=== PATIENT | male | born 1985 | race Caucasian/White ===

== ENCOUNTER 2017-06-01 05:29 | Inpatient (IN) | payer MEDICARE, OTHER ==
--- NOTE | 2017-05-21 11:16 | RADIOLOGY REPORT (SQ) ---
EXAM DESCRIPTION: CHEST PA/LATERAL COMPLETED DATE/TIME: 05/21/2017 10:59 am REASON FOR STUDY: PRE OP COMPARISON: None. EXAM PARAMETERS: NUMBER OF VIEWS: two views TECHNIQUE: Digital Frontal and Lateral radiographic views of the chest acquired. RADIATION DOSE: NA LIMITATIONS: none FINDINGS: LUNGS AND PLEURA: No opacities, masses or pneumothorax. No pleural effusion. MEDIASTINUM AND HILAR STRUCTURES: No masses or contour abnormalities. HEART AND VASCULAR STRUCTURES: Heart normal size. No evidence for failure. BONES: Sclerosis mid 3rd left clavicle, question old fracture HARDWARE: Right-sided permanent central line tip superior vena cava up neurostimulator electrodes ove r the mid thoracic spine. OTHER: No other significant finding. IMPRESSION: No acute changes TECHNICAL DOCUMENTATION: JOB ID: [id number] [employer]- All Rights Reserved
[~2017-06-01 05:29] MED LIST: BUPIVACAINE INJ/PF LIPOSOME/PF 266 MG/20 ML SDV INJ PRN; CEFAZOLIN INJ 1 GM VIAL IV PRN; IBUPROFEN 800 MG in NORMAL SALINE 250 ML IV PRN; LACTATED RINGERS 1000 ML IV PRN; LANSOPRAZOLE 15 MG TAB.RAP.DR PO PRN; LIDOCAINE 0.5% INJ-PF (5 MG/ML) 50 ML SDV SUBCUT PRN; ONDANSETRON HCL INJ/PF 4 MG/2 ML SDV IV PRN; OXYCODONE HCL SR 10 MG TABLET PO PRN; TRANEXAMIC ACID INJ/PF 1,000 MG/10 ML SDV IV PRN; VANCOMYCIN HCL 1,000 MG in DEXTROSE 5%-WATER 250 ML IV PRN
[2017-06-01] MEDS ORDERED: BUPIVACAINE INJ/PF LIPOSOME/PF 266 MG/20 ML SDV ONE (06:32)
[2017-06-01] MEDS ORDERED: MIDAZOLAM 2 MG/2 ML INJ ONE (07:02)
[2017-06-01] MEDS ORDERED: FENTANYL CITRATE INJ/PF 100 MCG/2 ML AMPUL ONE (07:02)
[2017-06-01] MEDS ORDERED: PROPOFOL INJ 200 MG/20 ML VIAL IV ONE (07:03)
[2017-06-01] MEDS ORDERED: HYDROMORPHONE HCL INJ/PF 2 MG/ML AMPULE ONE (07:03)
[2017-06-01] MEDS ORDERED: ACETAMINOPHEN 100 ML IV ONE (07:03)
[2017-06-01] MEDS ORDERED: DEXMEDETOMIDINE INJ 80 MCG/20 ML VIAL IV ONE (07:03)
[2017-06-01] MEDS ORDERED: EPHEDRINE SULFATE INJ 50 MG/1 ML AMPULE ONE (07:18)
[2017-06-01] MEDS ORDERED: TRANEXAMIC ACID INJ/PF 1,000 MG/10 ML SDV IV ONE ×3 (07:26→11:00)
[2017-06-01] MEDS ORDERED: DIPHENHYDRAMINE HCL 50 MG/ML VIAL IV PRN (08:37)
[2017-06-01] MEDS ORDERED: FENTANYL CITRATE INJ/PF 100 MCG/2 ML AMPUL IV PRN ×3 (08:37)
[2017-06-01] MEDS ORDERED: ONDANSETRON HCL INJ/PF 4 MG/2 ML SDV IV PRN (08:37)
[2017-06-01] MEDS ORDERED: MORPHINE SULFATE 10 MG/ML INJ IV PRN ×2 (08:37→09:43)
[2017-06-01] MEDS ORDERED: MEPERIDINE HCL/PF INJ 25 MG/1 ML DISP.SYRIN IV PRN (08:37)
[2017-06-01] MEDS ORDERED: PROMETHAZINE HCL INJ 25 MG/1 ML VIAL IV PRN ×2 (08:37)
--- NOTE | 2017-06-01 09:38 | Operative Report ---
Operative Report DATE OF SURGERY: 06/01/17 PREOPERATIVE DIAGNOSIS: Right proximal humeral avascular necrosis OPERATION: Right shoulder arthroplasty SURGEON: RALPH SCHERER 1ST JUNIOR SYSTEMS ANALYST: PRABHU CHEN ANESTHESIA: GA TISSUE REMOVED OR ALTERED: Bone to pathology ESTIMATED BLOOD LOSS: 150 PROCEDURE: Implants used: Izabela total shoulder arthroplasty, size 11 humerus, size 48 glenoid, size 48 humeral head Procedure with the patient in a beachchair position the operative table the right upper extremity and forequarter prepped and draped in sterile fashion. A standard deltopectoral approach the humerus is taken. Approximate 1 cm of pectoralis insertion was released. Subsequently the biceps groove was opened using a scissor and tendon transected proximally. The lesser tuberosity was osteotomized with a osteotome and marked with a tagging suture. The humeral head is then delivered into the field. Access is gained to the proximal humerus using an appropriate awl and then the humerus was prepared using cylindrical reamers until 11 reamer seated. Subsequently broaches were then used into the 11 broach is seated. A metal cap was placed on numerous attention is now turned to the glenoid. Glenoid is cleared of the labrum and the capsule was released released circumferentially. A central hole was then drilled followed by series of 2 inferior 1 proximal holes for the pegs. These are irrigated. A size 48 glenoid was then cemented in place using polymethylmethacrylate. Attention was now returned to the humerus. A trial reduction performed with 48 mm head. This provides adequate anterior posterior stability. The existing broach is removed. The size 11 stem was impacted down to the humeral canal. A size 48 head is impacted onto the humerus. The shoulder is reduced. The lesser tuberosity osteotomy was repaired using FiberWire as is the remainder of the rotator cuff interval. The remainder the soft tissues closed using Vicryl followed by valeria. A sterile compressive dressing and a shoulder immobilizer applied and the patient's return to the recovery room in satisfactory condition.
[2017-06-01] MEDS ORDERED: ASPIRIN 81 MG TABLET, ENT COATED PO SCH (10:00)
[2017-06-01] MEDS: MEPERIDINE HCL/PF INJ 25 MG/1 ML DISP.SYRIN ONE ×2 (10:00→10:05)
[2017-06-01] MEDS: FENTANYL CITRATE INJ/PF 100 MCG/2 ML AMPUL ONE ×2 (10:10→10:15)
--- NOTE | 2017-06-01 11:44 | RADIOLOGY REPORT (SQ) ---
EXAM DESCRIPTION: SHOULDER RIGHT 2 OR MORE VIEWS COMPLETED DATE/TIME: 06/01/2017 10:36 am REASON FOR STUDY: rt. shoulder arthroplasy M87.121 OSTEONECROSIS DUE TO DRUGS, RIGHT HUMERUS COMPARISON: None. NUMBER OF VIEWS: 2 TECHNIQUE: Internal rotation, external rotation, images acquired of the right shoulder. LIMITATIONS: None. FINDINGS: Expected postsurgical changes from right shoulder arthroplasty. Hardware is in expected p osition. OTHER: Right chest port noted. IMPRESSION: Expected postsurgical changes from right shoulder arthroplasty. Hardware is in expected position. TECHNICAL DOCUMENTATION: JOB ID: [id number] [place]-72 2010 [employer]- All Rights Reserved
[2017-06-01] MEDS ORDERED: OXYCODONE HCL SR 10 MG TABLET PO SCH (12:00)
[2017-06-01] MEDS ORDERED: ONDANSETRON HCL INJ/PF 4 MG/2 ML SDV ONE (12:50)
[2017-06-01] MEDS ORDERED: METOCLOPRAMIDE HCL INJ/PF 10 MG/2 ML SDV ONE (12:50)
[2017-06-01] MEDS ORDERED: GLYCOPYRROLATE INJ 0.4 MG/2 ML VIAL ONE (12:50)
[2017-06-01] MEDS ORDERED: SUCCINYLCHOLINE CHLORIDE INJ 200 MG/10 ML VIAL ONE (12:50)
[2017-06-01] MEDS ORDERED: DEXAMETHASONE SOD PHOSPHATE INJ 4 MG/1 ML VIAL ONE (12:50)
[2017-06-01] MEDS ORDERED: LIDOCAINE 2% INJ-PF (20 MG/ML) 2 ML AMPUL ONE (12:50)
[2017-06-01] MEDS: OXYCODONE HCL SR 40 MG TABLET PO SCH ×2 (15:59→21:22)
[2017-06-01] MEDS: GABAPENTIN 300 MG CAPSULE PO SCH ×2 (15:59→21:22)
[2017-06-01] MEDS: OXYCODONE HCL IR 5 MG TABLET PO SCH ×2 (18:23→23:46)
[2017-06-01] MEDS ORDERED: VANCOMYCIN HCL 1,000 MG in DEXTROSE 5%-WATER 250 ML IV ONE (20:00)
[2017-06-01] MEDS ORDERED: ZOLPIDEM TARTRATE 5 MG TABLET PO PRN (22:00)
[2017-06-02] MEDS: OXYCODONE HCL SR 40 MG TABLET PO SCH (05:14)
[2017-06-02] MEDS: OXYCODONE HCL IR 5 MG TABLET PO SCH (05:15)
[2017-06-02] MEDS: GABAPENTIN 300 MG CAPSULE PO SCH (05:15)
--- NOTE | 2017-06-02 06:44 | PDOC DISCHARGE SUMMARY ---
General - Admit/Disc Date/PCP Admission Date/Primary Care Provider: 06/01/17 05:29 GABBIE ADAIR NP Discharge Date: 06/02/17 - Discharge Diagnosis (1) Avascular necrosis of right humeral head Is this a current diagnosis for this admission?: Yes - Additional Information Resuscitation Status: Full Code Discharge Diet: As Tolerated, Regular Discharge Activity: Activity As Tolerated, No Lifting Over 10 Pounds Home Medications: Doxepin HCl [Silenor] 3 mg PO DAILY 06/01/17 Eszopiclone [Lunesta] 6 mg PO QHS 06/01/17 Gabapentin [Neurontin] 600 mg PO Q8 06/01/17 Oxycodone HCl 15 mg PO Q6HP PRN 06/01/17 Oxycodone HCl [Oxycontin] 40 mg PO Q8 06/01/17 History of Present Illness History of Present Illness: GREGORIA HERNANDEZ is a 31 year old male with avascular necrosis of the right humeral head admitted for total right shoulder arthroplasty. Hospital Course Hospital Course: 31-year-old white male who was admitted to the OR and underwent an elective total right shoulder arthroplasty. He was returned to the PACU in satisfactory condition and taken to the surgical floor. He was seen by Occupational Therapy and nursing staff for pain management. He has made progress with pain management stating that his pain is well controlled and he is much more comfortable than previously. He will be discharged home today with home health nursing, home occupational therapy and prescriptions for analgesic medication distributed by Dr. Love. Physical Exam Vital Signs: Temp Pulse Resp BP Pulse Ox 36.9 C 79 16 114/55 L 97 06/01/17 23:17 06/01/17 23:17 06/01/17 23:17 06/01/17 23:17 06/01/17 23:17 Intake & Output 05/31/17 06/01/17 06/02/17 06:59 06:59 06:59 Intake Total 0 4100 Output Total 1050 Balance 0 3050 Weight 66.4 kg General appearance: PRESENT: no acute distress, well-developed, well-nourished Head exam: PRESENT: atraumatic, normocephalic Respiratory exam: PRESENT: unlabored Pulses: PRESENT: normal radial pulses, normal dorsalis pedis pul, +2 pedal pulses bilateral Vascular exam: PRESENT: normal capillary refill Extremities exam: PRESENT: joint swelling Additional comments: Patient lying recumbent in hospital bed this morning with bilateral upper extremities in full extension. He has brisk capillary refill to fingers on bilateral upper extremities and +2 radial pulses. He notes his pain is much better controlled particularly with ice pack applied to surgical site. His postop site dressing is clean dry and intact. He is appropriate strength range of motion for this stage in the healing process. His sensorimotor functions are intact and his distal neurovascular exam is intact. Musculoskeletal exam: PRESENT: ambulatory Additional comments: Patient's postoperative pain is well controlled by nursing staff and Dr. Love he notes that his pain is much better particularly when ice pack is applied to surgical site. He is still slightly tender to palpation. He is able to ambulate and complete ADLs. Based on this surgical procedure patient would likely benefit from physical therapy/Occupational Therapy and his postoperative course. Neurological exam: PRESENT: alert, awake, oriented to person, oriented to place , oriented to time, oriented to situation, CN II-XII grossly intact. ABSENT: motor sensory deficit Psychiatric exam: PRESENT: appropriate affect, normal mood. ABSENT: homicidal ideation, suicidal ideation Skin exam: PRESENT: dry, intact, warm. ABSENT: cyanosis, rash Results Laboratory Results: 06/01/17 05:47 Blood Type O POSITIVE Antibody Screen NEGATIVE Impressions: Chest X-Ray 05/21/17 10:51 IMPRESSION: No acute changes Shoulder X-Ray 06/01/17 00:00 IMPRESSION: Expected postsurgical changes from right shoulder arthroplasty. Hardware is in expected position. Plan Discharge Plan: 31-year-old white male 1 day status post total right shoulder arthroplasty. He will be discharged to his home today with home health nursing, home occupational therapy. The visiting nurse service will change his OpSite dressing when they see fit i.e. when it is saturated with souleymane blood. He will follow-up with Dr. Love and Marcos COLLAZO at [facility] surgery 2 weeks postoperatively for staple removal and reevaluation. Time Spent: Less than 30 Minutes
[2017-06-02 08:13] VITALS: BP 118/75
== END 2017-06-02 09:37 | disposition home health service (06) | DRG 483 ==
LOC: INOR 05:29 → 4S 11:35
PROVIDERS: ADMIT Orthopaedic Surgery; ATTEND Orthopaedic Surgery
PROC: 0RRJ0JZ Replacement of Right Shoulder Joint with Synthetic Substitute, Open Approach (ICD-10-PCS; principal; 2017-06-01 07:30)
DX: M87.121 Osteonecrosis due to drugs, right humerus (principal); K50.90 Crohn's disease, unspecified, without complications; T38.0X5A Adverse effect of glucocorticoids and synthetic analogues, initial encounter; D50.9 Iron deficiency anemia, unspecified; Z96.643 Presence of artificial hip joint, bilateral; Z90.49 Acquired absence of other specified parts of digestive tract
CPT/HCPCS: 01630; 36415; 71020; 86850; 86900; 86901; 88305; 88311; C9290; G8987-GO; G8988-GO; G8989-GO; J0131; J0330; J0690; J1100; J1170; J1741; J2175; J2250; J2270; J2405; J2704; J2765; J3010; J3370; J3490; J7050; J7060; L3650

== ENCOUNTER 2017-06-12 15:21 | Emergency (ER) | payer MEDICARE, OTHER ==
--- NOTE | 2017-06-12 16:15 | ER Document Report ---
ED Medical Screen (RME) - General Mode of Arrival: Ambulatory Information source: Patient TRAVEL OUTSIDE OF THE [place] IN LAST 30 DAYS: No - General Chief Complaint: Arm Problem Stated Complaint: RIGHT ARM PAIN Time Seen by Provider: 06/12/17 15:45 Notes: Patient is a 31 year old male presenting to the emergency department complaining of right arm pain. Patient states that he has previously had right shoulder replacement shoulder on 06/01 and the pain has been increasing over the last 5 days. Patient denies any trauma to the shoulder but admits someone [place] the [place] recently. I have greeted and performed a rapid initial assessment of this patient. A comprehensive ED assessment and evaluation of the patient, analysis of test results and completion of the medical decision making process will be conducted by additional ED providers. (THI YORK) Patient is specifically concerned with possibility of a DVT in the right upper extremity. No history of DVT, does have a history of superficial thrombophlebitis postoperatively in the past. (KATY MADRIGAL) - Related Data Allergies/Adverse Reactions: No Known Allergies Allergy (Verified 06/12/17 15:21) Past Medical History - Social History Chew tobacco use (# tins/day): No Frequency of alcohol use: Occasional Drug Abuse: None - Past Medical History Cardiac Medical History: Denies: Hx Atrial Fibrillation, Hx Hypertension, Hx Pulmonary Embolism Pulmonary Medical History: Reports: Hx Bronchitis - chronic, Hx Pneumonia Denies: Hx Asthma, Hx COPD, Hx Respiratory Failure, Hx Sleep Apnea, Hx Tuberculosis Renal/ Medical History: Denies: Hx Peritoneal Dialysis Malignancy Medical History: Denies Hx Leukemia, Denies Hx Lung Cancer GI Medical History: Reports: Hx Crohn's Disease. Denies: Hx Gastroesophageal Reflux Disease, Hx Hiatal Hernia, Hx Irritable Bowel, Hx Liver Failure, Hx Pancreatitis, Hx Ulcer Musculoskeltal Medical History: Reports Hx Arthritis, Denies Hx Fibromyalgia, Denies Hx Muscular Dystrophy Psychiatric Medical History: Reports: Hx Depression Denies: Hx Bipolar Disorder, Hx Post Traumatic Stress Disorder, Hx Schizophrenia Traumatic Medical History: Denies: Hx Fractures Infectious Medical History: Denies: Hx HIV Past Surgical History: Reports: Hx Bowel Surgery - colectomy with ileostomy and reversal of ileostomy, Hx Colostomy - ileostomy and was reversed. Denies: Hx Appendectomy, Hx Cholecystectomy, Hx Coronary Artery Bypass Graft, Hx Gastric Bypass Surgery, Hx Herniorrhaphy, Hx Pacemaker, Hx Tonsillectomy - Immunizations History of Influenza Vaccine for 03/2017 - 08/2017 Season: No Physical Exam - Vital signs Vitals: Temp Pulse Resp BP Pulse Ox 98.2 F 86 16 113/66 97 06/12/17 15:37 06/12/17 15:37 06/12/17 15:37 06/12/17 15:37 06/12/17 15:37 - Notes Notes: GENERAL: Alert, interacts well. No acute distress. LUNGS: Clear to auscultation bilaterally, no wheezes, rales, or rhonchi. No respiratory distress. HEART: Regular rate and rhythm. No murmurs, gallops, or rubs. ABDOMEN: Soft, non-tender. Non-distended. Bowel sounds present in all 4 quadrants. EXTREMITIES: Incision at right glenohumeral joint, no exudate, no flucutance, swelling is consistent with post-operative changes. Pulses intact bilaterally, no change in skin color. Capillary refill is < 4seconds on thumbs bilaterally and < 2 seconds on palms bilaterally. No edema, radial and ulnar pulses 2/4 bilaterally. No cyanosis. (THI YORK) - Vital Signs Vital signs: Temp Pulse Resp BP Pulse Ox 98.2 F 86 16 113/66 97 06/12/17 15:37 06/12/17 15:37 06/12/17 15:37 06/12/17 15:37 06/12/17 15:37 Scribe Documentation - Scribe Written by Scribe:: Radha Andrade, 06/12/2017 16:15 acting as scribe for :: [employer]
--- NOTE | 2017-06-12 17:15 | RADIOLOGY REPORT (SQ) ---
EXAM DESCRIPTION: SHOULDER RIGHT 2 OR MORE VIEWS COMPLETED DATE/TIME: 06/12/2017 5:06 pm REASON FOR STUDY: RUE pain and swelling post-operatively COMPARISON: None. NUMBER OF VIEWS: Three views. TECHNIQUE: Internal rotation, external rotation, and Y view images acquired of the right shoulder. LIMITATIONS: None. FINDINGS: MINERALIZATION: Normal. BONES: Postsurgical changes from recent arthroplasty. Hardware is intact and in expected position. No acute fracture or dislocation.. JOINTS: No dislocation. VISUALIZED LUNGS AND RIBS: No pneumothorax. No rib fracture. SOFT TISSUES: No radiopaque foreign body. OTHER: Right chest port. Thoracic nerve stimulator. IMPRESSION: Postsurgical changes from recent arthroplasty. Hardware is intact and in expected posit ion. TECHNICAL DOCUMENTATION: JOB ID: [id number] [place]-72 2010 [employer]- All Rights Reserved
[2017-06-12 18:00] LABS: ABSOLUTE EOSINOPHILS # (AUTO) 0.3 10^3/uL (0.0-0.6); ABSOLUTE LYMPHOCYTES (AUTO) 1.7 10^3/uL (0.5-4.7); ABSOLUTE MONOCYTES (AUTO) 0.5 10^3/uL (0.1-1.4); ABSOLUTE NEUT (AUTO) 3.3 10^3/uL (1.7-8.2); BASOPHILS % (AUTO) 0.6 % (0-2); EOSINOPHILS % (AUTO) 4.4 % (0-6); HEMATOCRIT 30.7 % (37.9-51.0); HEMOGLOBIN 10.4 g/dL (13.5-17.0); HGB HCT DIFFERENCE 0.5; LYMPHOCYTES % (AUTO) 28.9 % (13-45); MEAN CORPUSCULAR HEMOGLOBIN 27.4 pg (27.0-33.4); MEAN CORPUSCULAR VOLUME 81 fl (80-97); MONOCYTES % (AUTO) 8.2 % (3-13); RED BLOOD COUNT 3.81 10^6/uL (4.35-5.55); RED CELL DISTRIBUTION WIDTH 13.7 % (11.5-14.0); SEGMENTED NEUTROPHILS % (AUTO) 57.9 % (42-78); WHITE BLOOD COUNT 5.8 10^3/uL (4.0-10.5)
[2017-06-12 18:04] LABS: PROTHROMBIN TIME 14.2 SEC (11.4-15.4)
[2017-06-12 18:17] LABS: ALANINE AMINOTRANSFERASE 28 U/L (21-72); ALBUMIN 3.9 g/dL (3.5-5.0); ALKALINE PHOSPHATASE 88 U/L (38-126); ANION GAP 11 (5-19); ASPARTATE AMINO TRANSFERASE 39 U/L (17-59); BILIRUBIN,DIRECT 0.2 mg/dL (0.0-0.4); BILIRUBIN,TOTAL 0.4 mg/dL (0.2-1.3); BLOOD UREA NITROGEN 12 mg/dL (7-20); CALCIUM 9.6 mg/dL (8.4-10.2); CARBON DIOXIDE 32 mmol/L (22-30); CHLORIDE 100 mmol/L (98-107); CREATININE RESULT 1.07 mg/dL (0.52-1.25); GLUCOSE 116 mg/dL (75-110); POTASSIUM 4.2 mmol/L (3.6-5.0); SODIUM 142.9 mmol/L (137-145)
--- NOTE | 2017-06-12 18:46 | ER Document Report ---
ED Extremity Problem, Upper - General Mode of Arrival: Ambulatory Information source: Patient TRAVEL OUTSIDE OF THE [place] IN LAST 30 DAYS: No - HPI Patient complains to provider of: Pain, Swelling, Right, Forearm Onset: Other - 4 days ago Associated symptoms: Other - see notes above <MOON HERNÁNDEZ - Last Filed: 06/12/17 19:13> <AMI CAPUTO - Last Filed: 06/12/17 19:41> - General Chief Complaint: Arm Problem Stated Complaint: RIGHT ARM PAIN Time Seen by Provider: 06/12/17 15:45 Notes: 31 year old male with history of recent right shoulder replacement (06/01/2017) presents to the ED complaining of worsening right forearm pain that started 4 days ago. Patient reports pressure like pain and swelling to the medial right elbow that radiates distally and proximally. Patient denies any recent injury to the right forearm. (MOON HERNÁNDEZ) - Related Data Allergies/Adverse Reactions: No Known Allergies Allergy (Verified 06/12/17 15:21) Past Medical History - General Information source: Patient - Social History Smoking Status: Never Smoker Chew tobacco use (# tins/day): No Frequency of alcohol use: Occasional Drug Abuse: None Family History: Reviewed & Not Pertinent Patient has suicidal ideation: No Patient has homicidal ideation: No - Past Medical History Cardiac Medical History: Reports: Other - chronic iron deficiency anemia Pulmonary Medical History: Reports: Hx Bronchitis - chronic, Hx Pneumonia Renal/ Medical History: Denies: Hx Peritoneal Dialysis GI Medical History: Reports: Hx Crohn's Disease Musculoskeltal Medical History: Reports Hx Arthritis, Reports Other - avascular necrosis of the right shoulder, bilateral hips, knees, and ankles Psychiatric Medical History: Reports: Hx Depression Past Surgical History: Reports: Hx Bowel Surgery - colectomy with ileostomy and reversal of ileostomy, Hx Colostomy - ileostomy and was reversed, Hx Orthopedic Surgery - bilateral hip replacement, right shoulder (06/01/2017), Other - thoracic spine simulator. Bilateral hip revisions and decompressions <MOON HERNÁNDEZ - Last Filed: 06/12/17 19:13> Review of Systems - Review of Systems Constitutional: No symptoms reported EENT: No symptoms reported Cardiovascular: No symptoms reported Respiratory: No symptoms reported Gastrointestinal: No symptoms reported Genitourinary: No symptoms reported Male Genitourinary: No symptoms reported Musculoskeletal: See HPI, Other - right forearm pain Skin: No symptoms reported Hematologic/Lymphatic: No symptoms reported Neurological/Psychological: No symptoms reported -: Yes All other systems reviewed and negative <MOON HERNÁNDEZ - Last Filed: 06/12/17 19:13> Physical Exam - General General appearance: Alert In distress: None - HEENT Head: Normocephalic, Atraumatic Eyes: Normal Extraocular movements intact: Yes Pupils: PERRL - Respiratory Respiratory status: No respiratory distress Breath sounds: Normal - Cardiovascular Rhythm: Regular Heart sounds: Normal auscultation - Abdominal Inspection: Normal - Back Back: Normal - Extremities General upper extremity: Other - Anterior to right medial epicondyle is exquisetly tender to palpate and causes pain to radiate distally and proximally. Palpation distally and proximally reproduces the pain. Non-tender to medial epicondyle or posterior to the ulnar canal.. No: Normal inspection General lower extremity: Normal inspection. No: Edema Shoulder: Other - staple line anterior right shoulder that is not inflammed or infected. No: Normal - Neurological Neuro grossly intact: Yes - Psychological Associated symptoms: Normal affect, Normal mood - Skin Skin Temperature: Warm Skin Moisture: Dry Skin Color: Normal <MOON HERNÁNDEZ - Last Filed: 06/12/17 19:13> - Vital signs Vitals: Temp Pulse Resp BP Pulse Ox 98.2 F 86 16 113/66 97 06/12/17 15:37 06/12/17 15:37 06/12/17 15:37 06/12/17 15:37 06/12/17 15:37 Course - Laboratory Result Diagrams: 06/12/17 17:43 06/12/17 17:43 <MOON HERNÁNDEZ - Last Filed: 06/12/17 19:13> - Laboratory Result Diagrams: 06/12/17 17:43 06/12/17 17:43 <AMI CAPUTO - Last Filed: 06/12/17 19:41> - Re-evaluation Re-evalutation: 06/12/17 19:34 We eventually settled on using the shoulder immobilizers that are provided in this facility now. It did work much better than the one he used at home because it did not have a bulky padding on the medial side were all his pain is. He has applied to the right arm, he has adjusted it himself for maximum comfort. He states that he will need to put some additional padding in the sling portion under the ulnar forearm bone, but otherwise this sling works quite well for comfort. I personally examined the sling placement and discussed these issues with the patient. (AMI CAPUTO) - Vital Signs Vital signs: Temp Pulse Resp BP Pulse Ox 98.2 F 86 16 113/66 97 06/12/17 15:37 06/12/17 15:37 06/12/17 15:37 06/12/17 15:37 06/12/17 15:37 - Laboratory Laboratory results interpreted by me: 06/12/17 06/12/17 17:43 17:43 RBC 3.81 L Hgb 10.4 L Hct 30.7 L Carbon Dioxide 32 H Glucose 116 H Discharge <MOON HERNÁNDEZ - Last Filed: 06/12/17 19:13> <AMI CAPUTO - Last Filed: 06/12/17 19:41> - Discharge Clinical Impression: Medial elbow muscle strain Condition: Stable Disposition: HOME, SELF-CARE Additional Instructions: The pain you are having is arising from the muscles that are just anterior to your medial epicondyle at the elbow. This is most likely due to how you have been holding your arm and elbow and how you have been doing the exercises. The ultrasound showed no problems in the veins of your arm. There is some fluid under the staple line which is most likely postoperative hematoma that is resolving. Use the sling as provided for support and protection of the painful area. Try moist heat to the painful area. Follow-up with Dr. Love if not improving. Referrals: RALPH LOVE MD [ACTIVE STAFF] - Follow up as needed Scribe Attestation: 06/12/17 19:31 I personally performed the services described in the documentation, reviewed and edited the documentation which was dictated to the scribe in my presence, and it accurately records my words and actions. (AMI CAPUTO) Scribe Documentation - Scribe Written by Scribe:: Radha Zendejas, 06/12/2017 1916 acting as scribe for :: tJ <MOON HERNÁNDEZ - Last Filed: 06/12/17 19:13>
[2017-06-12 19:59] VITALS: BP 107/77
--- NOTE | 2017-06-13 13:17 | XCELERA REPORT ---
[address] [address] Upper Extremity Venous Evaluation Name: GREGORIA HERNANDEZ Age: 31 yrs Gender: Male : 1985 Patient Status: Preadmit Patient Location: ER Study Date: 06/12/2017 04:27 PM Procedure: Unilateral duplex scan of the right upper extremity veins was performed, including responses to compression and other maneuvers. Reason For Study: RUE swelling, recent surgery Ordering Physician: KATY MADRIGAL Performed By: Rachel Baker Right Side Venous Evaluation Normal vessel filling wall to wall, compression and augmentation as well as Colour flow down to the forearm veins. Interpretation Summary Normal compression, patency, spontaneous and phasic flow of the right upper extremity veins. : KATY MADRIGAL > Sven Chappell
== END 2017-06-12 19:58 | disposition home or self-care (01) ==
LOC: ER 15:21
DX: S53.492A Other sprain of left elbow, initial encounter (principal); M79.601 Pain in right arm; M79.631 Pain in right forearm; M25.531 Pain in right wrist; X58.XXXA Exposure to other specified factors, initial encounter
CPT/HCPCS: 99284; 36415; 85025; 85610; 80053; 93971 ×2; 73030; L3650

== ENCOUNTER 2018-04-28 22:28 | Emergency (ER) | payer MEDICARE, OTHER ==
[2018-04-28] MEDS ORDERED: FENTANYL CITRATE INJ/PF 100 MCG/2 ML AMPUL IV ONE (22:52)
[2018-04-28] MEDS ORDERED: ONDANSETRON HCL INJ/PF 4 MG/2 ML SDV IV ONE (22:52)
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
--- NOTE | 2018-04-28 23:12 | RADIOLOGY REPORT (SQ) ---
XR PELVIS 2 VIEWS HISTORY: Pelvic pain. COMPARISON: None. FINDINGS: Prior bilateral total hip arthroplasties without evidence of fracture or hardware loosening. Remainder of the pelvis appears grossly intact. Surgical chain sutures in the central pelvis. Partially visualized neural stimulator device overlying the left ilium. Bowel gas obscures sacrum. IMPRESSION: Bilateral total hip arthroplasty hardware appears intact.
[2018-04-28 23:34] LABS: ALANINE AMINOTRANSFERASE 21 U/L (21-72); ALBUMIN 4.6 g/dL (3.5-5.0); ALKALINE PHOSPHATASE 67 U/L (38-126); ANION GAP 13 (5-19); ASPARTATE AMINO TRANSFERASE 41 U/L (17-59); BILIRUBIN,DIRECT 0.1 mg/dL (0.0-0.4); BILIRUBIN,TOTAL 0.4 mg/dL (0.2-1.3); BLOOD UREA NITROGEN 10 mg/dL (7-20); CALCIUM 9.9 mg/dL (8.4-10.2); CARBON DIOXIDE 26 mmol/L (22-30); CHLORIDE 106 mmol/L (98-107); GLUCOSE 105 mg/dL (75-110); LIPASE 91.1 U/L (23-300); POTASSIUM 4.2 mmol/L (3.6-5.0); SODIUM 144.5 mmol/L (137-145); TOTAL PROTEIN 7.3 g/dL (6.3-8.2)
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
[2018-04-28] MEDS ORDERED: METHOCARBAMOL INJ/PF 1000 MG/10 ML SDV IV ONE (23:53)
[2018-04-28] MEDS ORDERED: HYDROMORPHONE HCL INJ/PF 2 MG/ML AMPULE IV ONE (23:54)
[2018-04-29 00:08] LABS: HEMATOCRIT 27.4 % (37.9-51.0); HEMOGLOBIN 8.3 g/dL (13.5-17.0); MEAN CORPUSCULAR HEMOGLOBIN 20.1 pg (27.0-33.4); MEAN CORPUSCULAR HGB CONC 30.3 g/dL (32.0-36.0); MEAN CORPUSCULAR VOLUME 66 fl (80-97); PLATELET COUNT 333 10^3/uL (150-450); RED BLOOD COUNT 4.14 10^6/uL (4.35-5.55); RED CELL DISTRIBUTION WIDTH 19.9 % (11.5-14.0); WHITE BLOOD COUNT 13.7 10^3/uL (4.0-10.5)
[2018-04-29 00:25] LABS: ABSOLUTE LYMPHOCYTES# (MANUAL) 0.8 10^3/uL (0.5-4.7); ABSOLUTE MONOCYTES # (MANUAL) 0.7 10^3/uL (0.1-1.4); ABSOLUTE NEUTROPHILS# (MANUAL) 12.1 10^3/uL (1.7-8.2); BAND NEUTROPHILS % (MANUAL) 1 % (3-5); BASOPHILS % (MANUAL) 1 % (0-2); EOSINOPHILS % (MANUAL) 0 % (0-6); LYMPHOCYTES % (MANUAL) 6 % (13-45); MONOCYTES % (MANUAL) 5 % (3-13); SEGMENTED NEUTROPHILS % (MAN) 87 % (42-78); TOTAL CELLS COUNTED 100
[2018-04-29 00:28] LABS: ANISOCYTOSIS 2+; OVALOCYTES 1+; POIKILOCYTOSIS 1+
[2018-04-29 00:29] LABS: HYPOCHROMASIA 1+; POLYCHROMASIA SLIGHT; TEAR DROP CELLS SLIGHT
[2018-04-29 00:30] LABS: PLATELET COMMENT ADEQUATE
[2018-04-29] MEDS ORDERED: HYDROMORPHONE HCL INJ/PF 2 MG/ML AMPULE IV ONE (00:46)
[2018-04-29 01:18] VITALS: BP 107/61
== END 2018-04-29 01:19 | disposition home or self-care (01) ==
LOC: ER 22:28
DX: S32.10XA Unspecified fracture of sacrum, initial encounter for closed fracture (principal); S32.511A Fracture of superior rim of right pubis, initial encounter for closed fracture; S32.591A Other specified fracture of right pubis, initial encounter for closed fracture; W23.0XXA Caught, crushed, jammed, or pinched between moving objects, initial encounter; Y93.89 Activity, other specified; Y92.481 Parking lot as the place of occurrence of the external cause; Z96.643 Presence of artificial hip joint, bilateral; D64.9 Anemia, unspecified; G89.29 Other chronic pain; Z79.891 Long term (current) use of opiate analgesic
CPT/HCPCS: 96376; 99285; 96375; 96365; 36415; 83690; 85025; 80053; 72170; 74177; J3010; J2800; J1170; J2405